=== PATIENT | male | born 1965 | race Caucasian/White ===

== ENCOUNTER 2018-01-29 12:54 | Inpatient (IN) | payer OTHER ==
[2018-01-29] MEDS ORDERED: IPRATROPIUM/ALBUTEROL 3 ML DEYVIAL IH PRN (15:19)
[2018-01-29] MEDS ORDERED: ALBUTEROL 3 ML DEYVIAL IH PRN (15:19)
[2018-01-29] MEDS ORDERED: BISACODYL 10 MG SUPP PR PRN (15:19)
[2018-01-29] MEDS ORDERED: ONDANSETRON 4 MG/2 ML VIAL IV PRN (15:19)
[2018-01-29] MEDS ORDERED: MAGNESIUM HYDROXIDE 30 ML UDCUP PO PRN (15:19)
[2018-01-29] MEDS ORDERED: ACETAMINOPHEN 325 MG TAB PO PRN (15:19)
[2018-01-29] MEDS ORDERED: VANCOMYCIN IV SCH (15:30)
[2018-01-29] MEDS ORDERED: METOCLOPRAMIDE 5 MG TAB PO PRN (15:30)
[2018-01-29] MEDS ORDERED: SOD CHLORIDE IV SCH (15:30)
[2018-01-29] MEDS ORDERED: [UNRECOGNIZED DRUG - OTHER] IV SCH (15:30)
[2018-01-29] MEDS: LACTULOSE 20 GM/30 ML UDCUP PO SCH (16:27)
[2018-01-29] MEDS: metroNIDAZOLE 500 MG TAB PO SCH ×2 (17:42→21:50)
[2018-01-29] MEDS: CARBOXYMETHYLCELLULOSE 1% 0.4 ML DROPERETTE EACHEYE SCH ×2 (17:43→20:21)
[2018-01-29] MEDS: VANCOMYCIN 2 GM in D5W 500 ML IV SCH (17:43)
--- NOTE | 2018-01-29 18:40 | GHP ---
POST ADMISSION PHYSICIAN EVALUATION AND REHABILITATION TREATMENT PLAN DATE OF ADMISSION: 01/29/2018 DATE OF EVALUATION: 01/29/2018 TIME OF EVALUATION: 1525 REFERRING FACILITY: [facility]. REFERRING PHYSICIAN: Bill Johnson MD IMPAIRMENT GROUP: 2.1 DATE OF ONSET: 01/04/2018 CONSULTING PHYSICIAN: He was seen by the hospitalist service, Dr. Nova; by the infectious disease service, Dr. Rosenberg; and by ENT, Dr. Rossi. 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 ETIOLOGIC DIAGNOSIS: Nontraumatic brain dysfunction. DATE OF SURGERY: 01/04/2018, with a 2nd surgery on 01/14/2018. HISTORY OF PRESENT ILLNESS: This patient is a 52-year-old man who was admitted to [facility] on 01/04/2018, for elective resection of an acoustic schwannoma. He had experienced visual and hearing loss. He was originally assessed at [facility] on 12/17/2017, where the schwannoma was diagnosed by MRI. He had presented with papilledema, suggesting increased intracranial pressure. He had complained of dimming of his vision that began 2 months prior. He also had numbness in the left side of his face that had progressed over 2 months, and he was feeling dizzy and wobbly. He underwent translabyrinthine craniotomy and excision of the vestibular schwannoma. Initially, he had a subtotal resection and placement of an intraventricular drain. Subsequently, he had stage 2 of the surgery on 2017. During his hospital stay, he had hypoxic respiratory failure. He had prolonged intubation. He was placed on a course of corticosteroids with a 10- day taper starting 01/17/2018. He had volume overload and required diuresis. He had uncontrolled hypertension, initially requiring IV blood pressure medications, but subsequently transitioned to orals. He had [id number] left facial paralysis after surgery. He had a fall during his hospital stay on 01/22/2018, and had nonoperative facial fractures. He reports he broke his nose. He was seen by ENT, Dr. Rossi, regarding this. He was evaluated after the fall with a lumbar puncture which was consistent with a bacterial meningitis. He was placed on IV antibiotics under the care of Dr. Rosenberg of Infectious Disease. He had melena, and an EGD was done on 01/24/2018, which showed a nonbleeding duodenal ulcer. STUDIES AND LABS: Most recent brain MRI showed persistent hydrocephalus, evolution of perioperative ischemic changes within the left middle cerebral peduncle, and unchanged postoperative findings in the left cerebellopontine angle cistern. There was no residual or recurrent enhancing tumor noted. He had a basic metabolic profile done on 01/29/2018, the day of hospital discharge , which showed a low potassium at 3.1, a low calcium at 7.4, an elevated glucose at 132, but otherwise renal function and electrolytes were within normal limits. CBC done on 01/24/2018, showed an elevated white blood cell count at 14.67. He had anemia with a hemoglobin of 7.9 and a hematocrit of 23.8. He had a low platelet count at 130. When he initially presented at [facility], other labs that were done included a normal TSH, a normal basic metabolic profile, but for a slightly elevated glucose at 100, and findings of the left intracranial mass. PRECAUTIONS: He is a fall risk. He has aspiration and seizure precautions. ACTIVE COMORBIDITIES: He has the tier 2 comorbidity of dysphagia. Otherwise, he has no active tier 1, tier 2, or tier 3 comorbidities. PAST MEDICAL HISTORY: Obesity. PAST SURGICAL HISTORY: He has not had prior surgeries. PREHOSPITAL MEDICATIONS: He was taking a multivitamin and vitamin C. ALLERGIES: There are no known drug allergies. He is intolerant to onions. ADMISSION MEDICATIONS: 1. Acetaminophen 650 mg p.o. q.6 hours p.r.n. 2. Albuterol 3 mg p.o. q.4 hours p.r.n. 3. DuoNeb 3 mL inhaled q.4 hours p.r.n. 4. Amlodipine 10 mg p.o. daily. 5. Bisacodyl 10 mg GA daily p.r.n. 6. Carboxymethylcellulose eyedrops to each eye p.r.n. and 2 drops each eye t.i.d. scheduled. 7. Cefepime 2 g IV q.8 hours. 8. Lactulose 20 g p.o. q.12 hours. 9. Magnesium hydroxide (milk of magnesia), 30 mL p.o. q.12 hours p.r.n. 10. Metoclopramide 5 mg p.o. q.6 hours p.r.n. nausea. 11. Metronidazole 500 mg p.o. q.8 hours. 12. Ondansetron 4 mg IV q.6 hours p.r.n. 13. Pantoprazole 40 mg p.o. b.i.d. 14. Senna/docusate 1 tab p.o. b.i.d. scheduled. 15. Vancomycin 2 g IV q.12 hours. Also ordered but not continued on admission to inpatient rehab were as follows: 1. Hydralazine 10 mg IV q.8 hours p.r.n. 2. Diphenhydramine 12.5 mg p.o. q.6 hours. 3. Labetalol 10 mg IV q.2 hours p.r.n. PSYCHOSOCIAL HISTORY: He is a nonsmoker and nondrinker. He lives with his mother and brother. There is 1 step to enter the house. 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 FAMILY HISTORY: Noncontributory. REVIEW OF SYSTEMS: He reports low vision. He says he can see outlines of things and he can perceive movement. He reports loss of hearing in the left ear. He reports difficulty swallowing and coughing after he eats, especially if he eats too quickly. He is aware of a left facial droop. Otherwise neurologically, he denies weakness, numbness, or tingling of the extremities. He has no headache. He is not in pain otherwise. He denies fevers or chills. He denies cough or dyspnea. He denies nausea, vomiting, constipation, or diarrhea. He denies joint pain or joint swelling. He is aware of swelling bilateral in his upper extremities and reports he had an ultrasound of both arms to rule out DVT and it was negative. He reports that he snores if he sleeps on his back and needs oxygen. If he sleeps on his left or right side, he does not snore and reports that he does not need oxygen. Otherwise, a 10- point review of systems is negative. PHYSICAL EXAM: VITAL SIGNS: Blood pressure is 154/89, heart rate is 93, respiratory rate is 20, oxygen saturation is 93% on room air, temperature is 36.8 degrees centigrade. His weight is 152.8 kg for a body mass index of 43.3. GENERAL: This is a very obese man lying in bed, dressed in street clothes, cooperative, and in no acute distress. HEENT: Extraocular movements are intact. Pupils are equal, round, and reactive to light. He is unable to completely close his left eye. Mucous membranes are moist. Dentition is in good condition. He has a crowded airway, Mallampati class 3. NECK: Supple. HEART: There is a regular rate and rhythm with no murmurs, rubs, or gallops. LUNGS: Clear to auscultation bilaterally. ABDOMEN: Soft, nontender, nondistended with normoactive bowel sounds and no hepatosplenomegaly. EXTREMITIES: There is no cyanosis or clubbing. He has mild swelling bilaterally to the upper extremities. There is no edema in the lower extremities. NEUROLOGIC: He is alert and oriented x3. He is unable to close his left eye and he has a left facial droop, but otherwise cranial nerves 2-12 are grossly intact. There is no focal weakness. Sensation is intact to light touch. Deep tendon reflexes are 2+ bilaterally at the biceps, patellar, and Achilles tendons. Hearing loss is absent bilaterally to finger rub. SKIN: He has a half-circular incision behind his left ear. It is partially healed, and it has sutures present proximally and distally. There is mild erythema. There is no tenderness and no purulence. There is a stapled incision approximately 2 cm on his right frontoparietal area, and there is another small incision with eschar and a single suture on his scalp. CURRENT LEVEL OF FUNCTION: Per the pre-admission screen, regarding diet, feeding, and swallowing, he was on a regular diet. He required minimal assist with voice cues and setup due to his low vision. Grooming was done with minimal assist while seated. Dressing required minimal assist. Toileting required maximal assist for bailey care, and minimal assist for toilet transfer. He required voice cues for bed mobility. He was able to transfer with minimal assist and voice cues using a front-wheeled walker. Balance required contact guard to minimal assist. Endurance was fair. He was able to ambulate 15 feet with a front-wheeled walker and minimal assist of 2 people. Communication and cognition were considered normal. There are no significant functional changes from the preadmission screen on today's exam. IMPRESSION: This patient is a very obese 52-year-old man who had neurologic symptoms for 2 months or more leading up to an emergency department visit on . He had progressive vision loss, hearing loss, and impaired balance. Evaluation at the emergency department included a brain MRI which revealed a large left vestibular schwannoma. He was initially treated with corticosteroids. He was admitted to [facility] on 2017. He had a two-stage resection with surgery on 01/04/2018 and 01/14/2018. In the interim between the surgeries, he had respiratory failure requiring prolonged intubation. During his hospital stay, he had other complications including bacterial meningitis being treated with IV antibiotics and a fall with nonsurgical facial fractures. He has had edema of the upper extremities, but DVT was ruled out by ultrasounds. He had anemia and melena. He had an EGD which showed a nonbleeding duodenal ulcer for which he has been placed on a proton pump inhibitor. He was eventually medically stabilized and is appropriate for inpatient rehabilitation. His goal is to complete a rehabilitation stay and discharge home with his family. For a safe discharge, he will need to be independent with eating, grooming, and bed mobility, and to have modified independence for transfers, toileting, dressing, and ambulation with the least restrictive device on level and unlevel surfaces and for community distances. He will have therapy with Physical Therapy and Occupational Therapy. I have added Speech and Language Pathology due to his report of difficulty swallowing and coughing after eating. He will have therapy with each discipline for 60 minutes per day on 5-7 days of the week. His expected duration of stay is 7-10 days. It is anticipated that upon discharge he will continue to benefit from outpatient therapy, including occupational therapy and physical therapy. PLAN: 1. Debility status post craniotomy and excision of left vestibular schwannoma. PT and OT to optimize mobility and ADLs toward the independent or modified independent level. 2. Dysphagia and left facial weakness. Assessment and treatment per Speech and Language Pathology. 3. Inability to close left eye. Eye will be taped shut at night. I will add an ophthalmic ointment at night and otherwise the Celluvisc ophthalmic drops will be continued as ordered. 4. Hypertension, which required IV blood pressure medications initially. Continue amlodipine. Monitor blood pressure and adjust as needed. 5. Meningitis. Continue cefepime 2 g q.8 hours IV, vancomycin 2 g q.12 hours IV, and metronidazole 500 mg p.o. q.8 hours for 14 days, through 02/07/2018. Monitoring with CBC, CMP, ESR, and CRP, and vancomycin trough every Sunday and BMP and vancomycin trough every . Labs are to be faxed to Dr. Crispin Rosenberg of [facility] at [phone]. 6. Low vision. Discussed possible etiologies with neurosurgeon, Dr. Johnson. He thinks it is likely due to prolonged papilledema related to increased intracranial pressure. He had initial improvement when an intraventricular drain was placed. 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 7. Anemia. Will repeat CBC as planned for , 01/31/2018. Will also check iron panel. 8. Hypokalemia noted on labs today. We will repeat a BMP tomorrow 01/30/2018, and will replace potassium if necessary. 9. Duodenal ulcer. Continue proton pump inhibitor likely for 6 weeks, which would be into mid February. 10. Wound care. He should wash his hair daily with regular shampoo, but not scrub harshly over incisions. He can pat dry with a towel. He is not to put anything on his incisions. Per Dr. Johnson, there is fluid under the wound behind his left ear. There is also a fat graft in his mastoid. He expects this fluid collection to either resolve or declare itself as a CSF leak. It will be monitored carefully. Sutures and julien can be removed in 1 more week , which would be 02/04/2018. 11. Followup. He will see Dr. Johnson of [facility] after his discharge, and Dr. Johnson or his physician bacteriology research assistant, Soraida, will try to schedule a visit while he is on inpatient rehabilitation. He will follow up with infectious disease physician, Dr. Crispin Rosenberg, after his discharge. He might benefit from a Neuro-Ophthalmology evaluation. /[id number]/MODL MTDD
[2018-01-29] MEDS: PETROLAT,WHT/MIN OIL/SOD CHL 3.5 GM OPHT.OINT LEFTEYE SCH (20:20)
[2018-01-29] MEDS: SENNOSIDES/DOCUSATE SODIUM TAB PO SCH (20:20)
[2018-01-29] MEDS: PANTOPRAZOLE SODIUM 40 MG TAB PO SCH (20:21)
[2018-01-29] MEDS: CEFEPIME HCL 2 GM in NS 100 ML IV SCH (21:51)
[2018-01-29] MEDS ORDERED: CEFEPIME IV SCH (22:00)
[2018-01-29] MEDS ORDERED: DEXTROSE IV SCH (22:00)
[2018-01-30] MEDS: LACTULOSE 20 GM/30 ML UDCUP PO SCH (04:09)
[2018-01-30] MEDS: CEFEPIME HCL 2 GM in NS 100 ML IV SCH ×3 (05:00→21:21)
[2018-01-30] MEDS: VANCOMYCIN 2 GM in D5W 500 ML IV SCH ×2 (05:41→18:01)
[2018-01-30] MEDS: SENNOSIDES/DOCUSATE SODIUM TAB PO SCH ×2 (07:45→21:31)
[2018-01-30] MEDS: metroNIDAZOLE 500 MG TAB PO SCH ×3 (07:51→22:45)
[2018-01-30] MEDS: PANTOPRAZOLE SODIUM 40 MG TAB PO SCH ×2 (07:51→21:20)
[2018-01-30] MEDS: CARBOXYMETHYLCELLULOSE 1% 0.4 ML DROPERETTE EACHEYE SCH ×3 (07:51→21:20)
[2018-01-30] MEDS ORDERED: LACTULOSE 20 GM/30 ML UDCUP PO PRN (08:50)
--- NOTE | 2018-01-30 13:28 | PDOREHIP ---
Admission [facility] - Admission - 3 Day Assessment Period Admission Date/Day 1: 01/29/18 Day 2: 01/30/18 Day 3: 01/31/18 - Active Diagnoses Comorbidities and Co-existing Conditions at Admission: 83649. None of the Above - Skin Conditions Unhealed Pressure Ulcer (1 or more/Stage 1 or >)-Admission: 0. No
--- NOTE | 2018-01-30 13:28 | SOAPPROG ---
SOAP Progress Note Assessment/Plan: Assessment: Debility status post craniotomy and excision of left vestibular schwannoma. PT and OT to optimize mobility and ADLs toward the independent or modified independent level. Dysphagia and left facial weakness. Assessment and treatment per Speech and Language Pathology. Inability to close left eye. Eye will be taped shut at night. Continue ophthalmic ointment at night and Celluvisc ophthalmic drops during the day. Hypertension, which required IV blood pressure medications initially. Continue amlodipine. Monitor blood pressure and adjust as needed. Meningitis. Continue cefepime 2 g q.8 hours IV, vancomycin 2 g q.12 hours IV, and metronidazole 500 mg p.o. q.8 hours for 14 days, through 02/07/2018. * CBC, CMP, ESR, and CRP, and vancomycin trough every Sunday * BMP and vancomycin trough every . * Labs are to be faxed to Dr. Crispin Rosenberg of [facility] at [phone]. Low vision. Discussed possible etiologies with neurosurgeon, Dr. Johnson, 2017. He thinks it is likely due to prolonged papilledema related to increased intracranial pressure. He had initial improvement when an intraventricular drain was placed. 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 Anemia, thrombocytopenia. * Hemoglobin and hematocrit 97.9/23.8 on 01/24/2018. Platelets were 130. * Will repeat CBC as planned for , 01/31/2018. Will also check iron panel. Hypokalemia noted on labs 01/29/2018 with potassium of 3.1. Minimal improvement to 3.2 on BMP 01/30/2018. Initiate potassium replacement 20 mEq q.day. Will recheck Q and Sunday with monitoring regarding antibiotics. Normal magnesium on labs today, 01/30/2018. Insomnia. Shortness of breath while lying flat overnight. Nurse to arrange more comfortable mattress. Will also help protect skin, with blanching erythema noted over sacrum. Very minimal elevation of BNP; doubt that CHF is present and contributing to shortness of breath while lying flat. Duodenal ulcer. Continue proton pump inhibitor likely for 6 weeks, which would be into mid February. Wound care. He should wash his hair daily with regular shampoo, but not scrub harshly over incisions. He can pat dry with a towel. He is not to put anything on his incisions. Per Dr. Johnson, there is fluid under the wound behind his left ear. There is also a fat graft in his mastoid. He expects this fluid collection to either resolve or declare itself as a CSF leak. It will be monitored carefully. Sutures and julien can be removed in 1 more week , which would be 02/04/2018. FOLLOW-UP. He will see Dr. Johnson of [facility] after his discharge, and Dr. Johnson or his physician assistant finance director, Soraida, will try to schedule a visit while he is on inpatient rehabilitation. He will follow up with infectious disease physician, Dr. Crispin Rosenberg, after his discharge. He might benefit from a Neuro-Ophthalmology evaluation. 01/30/18 17:49 Subjective: Reports that uncomfortable mattress interfered with sleep. He slept on his back and became short of breath. Subsequently oxygen was placed. He has not noted any improvement in his eyesight. Otherwise without complaints. No cough or dyspnea, no fevers or chills. Objective: Vital Signs Temp Pulse Resp BP Pulse Ox 36.5 C 87 16 139/79 H 93 01/30/18 06:40 01/30/18 06:40 01/30/18 06:40 01/30/18 07:51 01/30/18 06:40 Laboratory Results 01/30/18 06:03 01/29/18 01/30/18 01/31/18 05:59 05:59 05:59 Intake Total 2287 1180 Output Total 300 Balance 1987 1180 Physical Exam - Physical Exam General Appearance: WD/WN, alert, no apparent distress, obese EENT: PERRL/EOMI, other (Unable to fully close left eye) Respiratory: normal breath sounds, No crackles, No rhonchi, No wheezing Cardiac/Chest: regular rate, rhythm, edema (1+ bilateral pretibial), No systolic murmur Skin: normal color, warm/dry Neuro/Psych: alert, normal mood/affect, oriented x 3, facial droop (left) ICD10 Worksheet Patient Problems: Problems Problem Status Onset History of benign schwannoma Acute Meningitis after procedure Acute S/P craniotomy Acute
[2018-01-30] MEDS: POTASSIUM CL 20 MEQ TAB PO SCH (14:19)
[2018-01-30] MEDS: PETROLAT,WHT/MIN OIL/SOD CHL 3.5 GM OPHT.OINT LEFTEYE SCH (21:21)
[2018-01-31] MEDS: CEFEPIME HCL 2 GM in NS 100 ML IV SCH ×3 (05:02→22:04)
[2018-01-31] MEDS: VANCOMYCIN 2 GM in D5W 500 ML IV SCH (05:58)
[2018-01-31 08:11] LABS: PLATELET COUNT 183 10^3/uL (150-400)
[2018-01-31] MEDS: SENNOSIDES/DOCUSATE SODIUM TAB PO SCH ×2 (09:01→20:07)
[2018-01-31] MEDS: metroNIDAZOLE 500 MG TAB PO SCH ×3 (09:01→22:12)
[2018-01-31] MEDS: POTASSIUM CL 20 MEQ TAB PO SCH (09:01)
[2018-01-31] MEDS: CARBOXYMETHYLCELLULOSE 1% 0.4 ML DROPERETTE EACHEYE SCH ×3 (09:12→20:07)
[2018-01-31] MEDS: PANTOPRAZOLE SODIUM 40 MG TAB PO SCH ×2 (09:12→20:07)
--- NOTE | 2018-01-31 13:07 | SOAPPROG ---
SOAP Progress Note Assessment/Plan: Assessment: Debility status post craniotomy and excision of left vestibular schwannoma. PT and OT to optimize mobility and ADLs toward the independent or modified independent level. Dysphagia and left facial weakness. Assessment and treatment per Speech and Language Pathology. Inability to close left eye. Eye will be taped shut at night. Continue ophthalmic ointment at night and Celluvisc ophthalmic drops during the day. Edema, upper and lower extremities. Upper extremity DVTs ruled out with ultrasound in the hospital. * Not in heart failure with minimal elevation of BNP. * Likely had fluid overload in the hospital. * Amlodipine may contribute. Will discontinue and change to lisinopril. * Weight q.week. Hypertension, which required IV blood pressure medications initially. * Discontinue amlodipine and initiate lisinopril 20 mg q.day starting 02/01/2018 Meningitis. Continue cefepime 2 g q.8 hours IV, vancomycin 2 g q.12 hours IV, and metronidazole 500 mg p.o. q.8 hours for 14 days, through 02/07/2018. * CBC, CMP, ESR, and CRP, and vancomycin trough every Sunday * BMP and vancomycin trough every . * Labs are to be faxed to Dr. Crispin Rosenberg of [facility] at [phone]. Low vision. Discussed possible etiologies with neurosurgeon, Dr. Johnson, 2017. He thinks it is likely due to prolonged papilledema related to increased intracranial pressure. He had initial improvement when an intraventricular drain was placed. 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 Anemia, thrombocytopenia. * Hemoglobin and hematocrit 97.9/23.8 on 01/24/2018. Platelets were 130. * Thrombocytopenia resolved on labs 01/31/2018. Hemoglobin and hematocrit declined to 8.8 and 27.1. Not iron deficient. Continue to monitor. Hypokalemia noted on labs 01/29/2018 with potassium of 3.1. Minimal improvement to 3.2 on BMP 01/30/2018. * Resolved on labs 01/31/2018. Will discontinue potassium supplement as lisinopril will tend to raise the potassium. Insomnia. Shortness of breath while lying flat overnight. Nurse to arrange more comfortable mattress. Will also help protect skin, with blanching erythema noted over sacrum. Very minimal elevation of BNP; doubt that CHF is present and contributing to shortness of breath while lying flat. Duodenal ulcer. Continue proton pump inhibitor likely for 6 weeks, which would be into mid February. Wound care. He should wash his hair daily with regular shampoo, but not scrub harshly over incisions. He can pat dry with a towel. He is not to put anything on his incisions. Per Dr. Johnson, there is fluid under the wound behind his left ear. There is also a fat graft in his mastoid. He expects this fluid collection to either resolve or declare itself as a CSF leak. It will be monitored carefully. Sutures and julien can be removed in 1 more week , which would be 02/04/2018. FOLLOW-UP. He will see Dr. Johnson of [facility] after his discharge, and Dr. Johnson or his physician certified medical technician assistant, Soraida, will try to schedule a visit while he is on inpatient rehabilitation. He will follow up with infectious disease physician, Dr. Crispin Rosenberg, after his discharge. He might benefit from a Neuro-Ophthalmology evaluation. 01/31/18 13:26 Subjective: No complaints. Not in pain. No fevers or chills, no cough or dyspnea. Aware that he requires oxygen overnight. Concerned about swelling. He says that his left arm was more swollen yesterday but that swelling went down overnight when it was positioned raised on a pillow for sleep. Objective: Vital Signs Temp Pulse Resp BP Pulse Ox 36.7 C 105 H 18 132/89 H 95 01/31/18 08:00 01/31/18 08:00 01/31/18 08:00 01/31/18 08:00 01/31/18 08:00 Laboratory Results 01/31/18 05:30 01/30/18 01/31/18 02/01/18 05:59 05:59 05:59 Intake Total 2287 3980 1660 Output Total 300 1600 800 Balance 1987 2380 860 Physical Exam - Physical Exam General Appearance: WD/WN, alert, no apparent distress, obese Respiratory: normal breath sounds, No crackles, No rhonchi, No wheezing Cardiac/Chest: regular rate, rhythm, edema (2+ bilateral upper extremities and pretibial lower extremities), No diastolic murmur, No systolic murmur Skin: normal color, warm/dry, other (Incisions intact, sutures and julien present, no erythema, swelling or discharge. Soft and nontender along incision behind left ear.) Neuro/Psych: alert, normal mood/affect, oriented x 3 ICD10 Worksheet Patient Problems: Problems Problem Status Onset History of benign schwannoma Acute Meningitis after procedure Acute S/P craniotomy Acute - ICD10 Problem Qualifiers (1) Meningitis after procedure (2) S/P craniotomy (3) History of benign schwannoma
[2018-01-31] MEDS: VANCOMYCIN 1.5 GM in NS 250 ML IV SCH (17:58)
[2018-01-31] MEDS: PETROLAT,WHT/MIN OIL/SOD CHL 3.5 GM OPHT.OINT LEFTEYE SCH (20:07)
[2018-02-01] MEDS: CARBOXYMETHYLCELLULOSE 1% 0.4 ML DROPERETTE EACHEYE PRN (01:06)
[2018-02-01] MEDS: VANCOMYCIN 1.5 GM in NS 250 ML IV SCH ×3 (01:29→21:10)
[2018-02-01] MEDS: CEFEPIME HCL 2 GM in NS 100 ML IV SCH ×3 (05:22→22:20)
[2018-02-01] MEDS: SENNOSIDES/DOCUSATE SODIUM TAB PO SCH ×2 (08:57→20:43)
[2018-02-01] MEDS: PANTOPRAZOLE SODIUM 40 MG TAB PO SCH ×2 (08:57→20:43)
[2018-02-01] MEDS: LISINOPRIL 20 MG TAB PO SCH (08:57)
[2018-02-01] MEDS: CARBOXYMETHYLCELLULOSE 1% 0.4 ML DROPERETTE EACHEYE SCH ×3 (08:58→20:45)
[2018-02-01] MEDS: metroNIDAZOLE 500 MG TAB PO SCH ×3 (08:58→22:28)
--- NOTE | 2018-02-01 09:55 | SOAPPROG ---
SOAP Progress Note Assessment/Plan: Assessment: Debility status post craniotomy and excision of left vestibular schwannoma. * Initial functional independence measure 83 on 02/01/2018. Has ambulated 150 ft slowly with a front wheel walker needing standby assist. Has ascended and descended 3 steps with 2 railings. Lower body and upper body dressing required setup and minimal assist. Bathing was done seated with moderate assist. Needs guidance for low vision when he is walking. Vision in the right eye is improving vision in the left eye shows severe impairment. * Continue PT and OT to optimize mobility and ADLs toward the independent or modified independent level. Dysphagia and left facial weakness. Assessment and treatment per Speech and Language Pathology. Inability to close left eye. Eye will be taped shut at night. Continue ophthalmic ointment at night and Celluvisc ophthalmic drops during the day. Hypertension, which required IV blood pressure medications initially. * Changed from amlodipine 10 mg q.day to lisinopril 20 mg q.day starting 2017 to reduce edema. Monitor for adequacy of control. Consider titrating lisinopril verses adding a smaller dose of amlodipine if blood pressure is high. Meningitis. Continue cefepime 2 g q.8 hours IV, vancomycin 2 g q.12 hours IV, and metronidazole 500 mg p.o. q.8 hours for 14 days, through 02/07/2018. * CBC, CMP, ESR, and CRP, and vancomycin trough every Sunday * BMP and vancomycin trough every . * Labs are to be faxed to Dr. Crispin Rosenberg of [facility] at [phone]. * [facility] pharmacy adjusting warfarin. Dry mouth. Biotene has been ordered four times daily p.r.n. And he was encouraged to use it. Trial of pilocarpine 5 mg at HS to improve symptoms overnight. Low vision. Discussed possible etiologies with neurosurgeon, Dr. Johnson, 2017. He thinks it is likely due to prolonged papilledema related to increased intracranial pressure. He had initial improvement when an intraventricular drain was placed. 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 Anemia, thrombocytopenia. * Hemoglobin and hematocrit 7.9/23.8 on 01/24/2018. Platelets were 130. * Improving on labs, 01/31/2018. Not iron deficient. Thrombocytopenia resolved. Hypokalemia noted on labs 01/29/2018 with potassium of 3.1. Minimal improvement to 3.2 on BMP 01/30/2018. Normal magnesium on labs 01/30/2018. Initiate potassium replacement 20 mEq q.day. * Resolved on labs 01/31/2018. Will recheck Q and Sunday with monitoring regarding antibiotics. Insomnia. Improved with change of mattress. Duodenal ulcer. Continue proton pump inhibitor likely for 6 weeks, which would be into mid February. Wound care. He should wash his hair daily with regular shampoo, but not scrub harshly over incisions. He can pat dry with a towel. He is not to put anything on his incisions. Per Dr. Johnson, there is fluid under the wound behind his left ear. There is also a fat graft in his mastoid. He expects this fluid collection to either resolve or declare itself as a CSF leak. It will be monitored carefully. Sutures and julien can be removed in 1 more week , which would be 02/04/2018. Prophylaxis. Ambulating 150 ft. No hemiparesis. Main risk factor is obesity. No pharmacologic anticoagulation is indicated. Encourage increased ambulation. DISPOSITION: Plans to return home, where he is main caregiver for his mother as well as his brother was on disability. 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 Tentative discharge date set for 02/08/2018. FOLLOW-UP. He will see Dr. Johnson of [facility] after his discharge, and Dr. Johnson or his physician supply chain assistant, Soraida, will try to schedule a visit while he is on inpatient rehabilitation. He will follow up with infectious disease physician, Dr. Crispin Rosenberg, after his discharge. He will benefit from a Neuro-Ophthalmology evaluation. 02/01/18 12:02 Subjective: Complains of dry mouth, especially at night. He drinks extra fluid because of it and then he has urinary frequency at night. Otherwise without complaints. No cough or dyspnea, no fevers or chills. Not in pain. Objective: Vital Signs Temp Pulse Resp BP Pulse Ox 36.5 C 106 H 18 152/110 H 93 02/01/18 06:35 02/01/18 06:35 02/01/18 06:35 02/01/18 08:57 02/01/18 06:35 Laboratory Results 01/31/18 05:30 01/31/18 05:30 01/31/18 02/01/18 02/02/18 05:59 05:59 05:59 Intake Total 3980 4323 460 Output Total 1600 1200 300 Balance 2380 3123 160 - Time Spent With Patient Time Spent With Patient: Greater than 35 min floor time today, including more than 50% of time in coordination of care during staffing meeting, and counseling patient. Physical Exam - Physical Exam General Appearance: WD/WN, alert, no apparent distress, obese Respiratory: No respiratory distress, No accessory muscle use Cardiac/Chest: edema (1+ bilateral pretibial) Skin: normal color, warm/dry, other (Incisios clean dry and intact, no erythema. ) Neuro/Psych: alert, normal mood/affect, oriented x 3, facial droop (Left) ICD10 Worksheet Patient Problems: Problems Problem Status Onset History of benign schwannoma Acute Meningitis after procedure Acute S/P craniotomy Acute
[2018-02-01] MEDS: PILOCARPINE HCL 5 MG TAB PO SCH (20:43)
[2018-02-01] MEDS: PETROLAT,WHT/MIN OIL/SOD CHL 3.5 GM OPHT.OINT LEFTEYE SCH (20:43)
[2018-02-02] MEDS: VANCOMYCIN 1.5 GM in NS 250 ML IV SCH ×3 (03:36→18:56)
[2018-02-02] MEDS: CEFEPIME HCL 2 GM in NS 100 ML IV SCH ×3 (05:19→22:05)
[2018-02-02] MEDS: metroNIDAZOLE 500 MG TAB PO SCH ×3 (06:46→23:38)
[2018-02-02] MEDS: BIOTENE DRY MOUTH ORAL RINSE 237 ML BTL MM PRN ×3 (06:48→20:14)
[2018-02-02] MEDS: LISINOPRIL 20 MG TAB PO SCH (08:56)
[2018-02-02] MEDS: CARBOXYMETHYLCELLULOSE 1% 0.4 ML DROPERETTE EACHEYE SCH ×3 (08:56→22:12)
[2018-02-02] MEDS: SENNOSIDES/DOCUSATE SODIUM TAB PO SCH ×2 (08:56→20:04)
[2018-02-02] MEDS: PANTOPRAZOLE SODIUM 40 MG TAB PO SCH ×2 (08:56→20:04)
--- NOTE | 2018-02-02 14:35 | SOAPPROG ---
SOAP Progress Note Assessment/Plan: Assessment/Plan: Debility status post craniotomy and excision of left vestibular schwannoma. * Initial functional independence measure 83 on 02/01/2018. Has ambulated 150 ft slowly with a front wheel walker needing standby assist. Has ascended and descended 3 steps with 2 railings. Lower body and upper body dressing required setup and minimal assist. Bathing was done seated with moderate assist. Needs guidance for low vision when he is walking. Vision in the right eye is improving vision in the left eye shows severe impairment. * Continue PT and OT to optimize mobility and ADLs toward the independent or modified independent level. Dysphagia and left facial weakness. Assessment and treatment per Speech and Language Pathology. Inability to close left eye. Eye will be taped shut at night. Continue ophthalmic ointment at night and Celluvisc ophthalmic drops during the day. Hypertension, which required IV blood pressure medications initially. * Changed from amlodipine 10 mg q.day to lisinopril 20 mg q.day starting 2017 to reduce edema. Monitor for adequacy of control. Consider titrating lisinopril verses adding a smaller dose of amlodipine if blood pressure is high. Meningitis. Continue cefepime 2 g q.8 hours IV, vancomycin 2 g q.12 hours IV, and metronidazole 500 mg p.o. q.8 hours for 14 days, through 02/07/2018. * CBC, CMP, ESR, and CRP, and vancomycin trough every Sunday * BMP and vancomycin trough every . * Labs are to be faxed to Dr. Crispin Rosenberg of [facility] at [phone]. * [facility] pharmacy adjusting warfarin. 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 * Biotene has been ordered four times daily p.r.n. And he was encouraged to use it. * Trial of pilocarpine 5 mg at HS to improve symptoms overnight. Low vision. Discussed possible etiologies with neurosurgeon, Dr. Johnson, 2017. He thinks it is likely due to prolonged papilledema related to increased intracranial pressure. He had initial improvement when an intraventricular drain was placed. 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 Anemia, thrombocytopenia. * Hemoglobin and hematocrit 7.9/23.8 on 01/24/2018. Platelets were 130. * Improving on labs, 01/31/2018. Not iron deficient. Thrombocytopenia resolved. Hypokalemia noted on labs 01/29/2018 with potassium of 3.1. Minimal improvement to 3.2 on BMP 01/30/2018. Normal magnesium on labs 01/30/2018. Initiate potassium replacement 20 mEq q.day. * Resolved on labs 01/31/2018. Will recheck Q and Sunday with monitoring regarding antibiotics. Insomnia. Improved with change of mattress. Duodenal ulcer. Continue proton pump inhibitor likely for 6 weeks, which would be into mid February. Wound care. He should wash his hair daily with regular shampoo, but not scrub harshly over incisions. He can pat dry with a towel. He is not to put anything on his incisions. Per Dr. Johnson, there is fluid under the wound behind his left ear. There is also a fat graft in his mastoid. He expects this fluid collection to either resolve or declare itself as a CSF leak. It will be monitored carefully. Sutures and julien can be removed in 1 more week , which would be 02/04/2018. Prophylaxis. Ambulating 150 ft. No hemiparesis. Main risk factor is obesity. No pharmacologic anticoagulation is indicated. Encourage increased ambulation. DISPOSITION: Plans to return home, where he is main caregiver for his mother as well as his brother who is on disability. 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. Tentative discharge date set for 02/08/2018. FOLLOW-UP. He will see Dr. Johnson of [facility] after his discharge, and Dr. Johnson or his physician records management assistant, Soraida, will try to schedule a visit while he is on inpatient rehabilitation. He will follow up with infectious disease physician, Dr. Crispin Rosenberg, after his discharge. He will benefit from a Neuro-Ophthalmology evaluation. 02/02/18 14:32 Subjective: Doing well - Reporting that everyday seems to be a little better. Having regular bowel movement and no problems with urination. no new neurologic changes. Feels that his eye is doing better since they've started taping. still feeling dry during the day. Objective: Vital Signs Temp Pulse Resp BP Pulse Ox 98.1 F 102 H 18 106/66 93 02/02/18 08:00 02/02/18 08:00 02/02/18 08:00 02/02/18 08:56 02/01/18 20:00 Laboratory Results 01/31/18 05:30 01/31/18 05:30 02/01/18 02/02/18 02/03/18 05:59 05:59 05:59 Intake Total 4323 3550 830 Output Total 1200 1050 Balance 3123 2500 830 Physical Exam - Physical Exam General Appearance: alert, no apparent distress EENT: other (Left sided lagophthalomos, Bruising, Multiple areas of sutures/ julien over scalp) Respiratory: lungs clear Cardiac/Chest: regular rate, rhythm Abdomen: non-tender, soft Skin: normal color Extremities: other (minimal/trace LE edema bilaterally ) Neuro/Psych: alert ICD10 Worksheet Patient Problems: Problems Problem Status Onset History of benign schwannoma Acute Meningitis after procedure Acute S/P craniotomy Acute
[2018-02-02] MEDS: PILOCARPINE HCL 5 MG TAB PO SCH (20:04)
[2018-02-02] MEDS: PETROLAT,WHT/MIN OIL/SOD CHL 3.5 GM OPHT.OINT LEFTEYE SCH (20:11)
[2018-02-03] MEDS: VANCOMYCIN 1.5 GM in NS 250 ML IV SCH ×3 (03:36→19:31)
[2018-02-03] MEDS: CEFEPIME HCL 2 GM in NS 100 ML IV SCH ×3 (05:57→22:04)
[2018-02-03] MEDS: metroNIDAZOLE 500 MG TAB PO SCH ×3 (06:38→23:40)
[2018-02-03] MEDS: CARBOXYMETHYLCELLULOSE 1% 0.4 ML DROPERETTE EACHEYE SCH ×3 (07:41→21:35)
[2018-02-03] MEDS: PANTOPRAZOLE SODIUM 40 MG TAB PO SCH ×2 (07:43→21:35)
[2018-02-03] MEDS: SENNOSIDES/DOCUSATE SODIUM TAB PO SCH ×2 (07:43→21:35)
[2018-02-03] MEDS: LISINOPRIL 20 MG TAB PO SCH (07:43)
--- NOTE | 2018-02-03 11:25 | SOAPPROG ---
SOAP Progress Note Assessment/Plan: Assessment/Plan: Debility status post craniotomy and excision of left vestibular schwannoma. * Initial functional independence measure 83 on 02/01/2018. Has ambulated 150 ft slowly with a front wheel walker needing standby assist. Has ascended and descended 3 steps with 2 railings. Lower body and upper body dressing required setup and minimal assist. Bathing was done seated with moderate assist. Needs guidance for low vision when he is walking. Vision in the right eye is improving vision in the left eye shows severe impairment. * Continue PT and OT to optimize mobility and ADLs toward the independent or modified independent level. Dysphagia and left facial weakness. Assessment and treatment per Speech and Language Pathology. Inability to close left eye. Eye will be taped shut at night. Continue ophthalmic ointment at night and Celluvisc ophthalmic drops during the day. Hypertension, which required IV blood pressure medications initially. * Changed from amlodipine 10 mg q.day to lisinopril 20 mg q.day starting 2017 to reduce edema. Monitor for adequacy of control. Consider titrating lisinopril verses adding a smaller dose of amlodipine if blood pressure is high. Meningitis. Continue cefepime 2 g q.8 hours IV, vancomycin 2 g q.12 hours IV, and metronidazole 500 mg p.o. q.8 hours for 14 days, through 02/07/2018. * CBC, CMP, ESR, and CRP, and vancomycin trough every Sunday * BMP and vancomycin trough every . * Labs are to be faxed to Dr. Crispin Rosenberg of [facility] at [phone]. * [facility] pharmacy adjusting warfarin. 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 * Biotene has been ordered four times daily p.r.n. And he was encouraged to use it. * Trial of pilocarpine 5 mg at HS to improve symptoms overnight. Low vision. Discussed possible etiologies with neurosurgeon, Dr. Johnson, 2017. He thinks it is likely due to prolonged papilledema related to increased intracranial pressure. He had initial improvement when an intraventricular drain was placed. 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 Anemia, thrombocytopenia. * Hemoglobin and hematocrit 7.9/23.8 on 01/24/2018. Platelets were 130. * Improving on labs, 01/31/2018. Not iron deficient. Thrombocytopenia resolved. Hypokalemia noted on labs 01/29/2018 with potassium of 3.1. Minimal improvement to 3.2 on BMP 01/30/2018. Normal magnesium on labs 01/30/2018. Initiate potassium replacement 20 mEq q.day. * Resolved on labs 01/31/2018. Will recheck Q and Sunday with monitoring regarding antibiotics. Insomnia. Improved with change of mattress. Duodenal ulcer. Continue proton pump inhibitor likely for 6 weeks, which would be into mid February. Wound care. He should wash his hair daily with regular shampoo, but not scrub harshly over incisions. He can pat dry with a towel. He is not to put anything on his incisions. Per Dr. Johnson, there is fluid under the wound behind his left ear. There is also a fat graft in his mastoid. He expects this fluid collection to either resolve or declare itself as a CSF leak. It will be monitored carefully. Sutures and julien can be removed in 1 more week , which would be 02/04/2018. Prophylaxis. Ambulating 150 ft. No hemiparesis. Main risk factor is obesity. No pharmacologic anticoagulation is indicated. Encourage increased ambulation. DISPOSITION: Plans to return home, where he is main caregiver for his mother as well as his brother who is on disability. 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 Tentative discharge date set for 02/08/2018. FOLLOW-UP. He will see Dr. Johnson of [facility] after his discharge, and Dr. Johnson or his physician preschool assistant, Soraida, will try to schedule a visit while he is on inpatient rehabilitation. He will follow up with infectious disease physician, Dr. Crispin Rosenberg, after his discharge. He will benefit from a Neuro-Ophthalmology evaluation. Today's Plan - Pt reporting deep/aching pain in the left calf - reports it started a couple of days ago but forgot to share until today. maybe is positionally dependent. no associated SOB. 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 02/03/18 11:21 Subjective: Feeling better each day - can see improvements nearly every day. Does report this morning that he does have a deep ache in his left calf - has been present for the last couple of days but hadn't remembered to tell anyone. no SOB, no CP , no abdominal pain. Having good BM's and continent of bladder Objective: Vital Signs Temp Pulse Resp BP Pulse Ox 98.3 F 103 H 18 110/73 92 02/03/18 10:03 02/03/18 10:03 02/03/18 10:03 02/03/18 10:03 02/03/18 10:03 Laboratory Results 01/31/18 05:30 01/31/18 05:30 02/02/18 02/03/18 02/04/18 05:59 05:59 05:59 Intake Total 3550 2430 480 Output Total 1050 1340 Balance 2500 1090 480 Physical Exam - Physical Exam General Appearance: alert, no apparent distress, other (affect flat) EENT: other (Left Lagophthalmos, ) Respiratory: lungs clear Cardiac/Chest: regular rate, rhythm Abdomen: non-tender, soft Extremities: other (minimal pain with palpation over the left calf - somewhat pinpointed. None over the right. No difference in size (grossly) from side to side and no associated warmth/redness. Trace edema bilaterally ) Neuro/Psych: alert ICD10 Worksheet Patient Problems: Problems Problem Status Onset History of benign schwannoma Acute Meningitis after procedure Acute S/P craniotomy Acute
[2018-02-03] MEDS: ENOXAPARIN 150 MG/ML SYR SC SCH ×2 (17:23→17:34)
[2018-02-03] MEDS: PETROLAT,WHT/MIN OIL/SOD CHL 3.5 GM OPHT.OINT LEFTEYE SCH (19:42)
[2018-02-03] MEDS: PILOCARPINE HCL 5 MG TAB PO SCH (21:35)
[2018-02-04] MEDS: VANCOMYCIN 1.5 GM in NS 250 ML IV SCH ×3 (03:20→18:34)
[2018-02-04] MEDS: CEFEPIME HCL 2 GM in NS 100 ML IV SCH ×3 (06:07→22:20)
[2018-02-04 08:18] LABS: PLATELET COUNT 215 10^3/uL (150-400)
[2018-02-04] MEDS: LISINOPRIL 20 MG TAB PO SCH (08:46)
[2018-02-04] MEDS: SENNOSIDES/DOCUSATE SODIUM TAB PO SCH ×2 (08:46→20:47)
[2018-02-04] MEDS: metroNIDAZOLE 500 MG TAB PO SCH ×3 (08:46→22:28)
[2018-02-04] MEDS: PANTOPRAZOLE SODIUM 40 MG TAB PO SCH ×2 (08:47→20:47)
[2018-02-04] MEDS: CARBOXYMETHYLCELLULOSE 1% 0.4 ML DROPERETTE EACHEYE SCH ×3 (08:48→20:47)
[2018-02-04] MEDS: ENOXAPARIN 150 MG/ML SYR SC SCH (08:48)
--- NOTE | 2018-02-04 12:31 | SOAPPROG ---
SOAP Progress Note Assessment/Plan: Assessment: Debility status post craniotomy and excision of left vestibular schwannoma. * Initial functional independence measure 83 on 02/01/2018. Has ambulated 150 ft slowly with a front wheel walker needing standby assist. Has ascended and descended 3 steps with 2 railings. Lower body and upper body dressing required setup and minimal assist. Bathing was done seated with moderate assist. Needs guidance for low vision when he is walking. Vision in the right eye is improving; vision in the left eye shows severe impairment. * Continue PT and OT to optimize mobility and ADLs toward the independent or modified independent level. Dysphagia and left facial weakness. Showing some improvement. Continue Speech and Language Pathology. Inability to close left eye. Eye will be taped shut at night. Continue ophthalmic ointment at night and Celluvisc ophthalmic drops during the day. Hypertension, which required IV blood pressure medications initially. * Changed from amlodipine 10 mg q.day to lisinopril 20 mg q.day starting 2017 to reduce edema. Monitor for adequacy of control. Consider titrating lisinopril verses adding a smaller dose of amlodipine if blood pressure is high. Meningitis. Continue cefepime 2 g q.8 hours IV, vancomycin 2 g q.12 hours IV, and metronidazole 500 mg p.o. q.8 hours for 14 days, through 02/07/2018. * CBC, CMP, ESR, and CRP, and vancomycin trough every Sunday * BMP and vancomycin trough every . * Labs are to be faxed to Dr. Crispin Rosenberg of [facility] at [phone]. * [facility] pharmacy adjusting warfarin. DVT, left lower extremity. Diagnosed 02/03/2018 and enoxaparin begun. * Discussed with patient's pharmacy. New oral anticoagulants are covered. Changed to rivaroxaban 15 mg twice daily for 21 days through February 24, then 20 mg p.o. Q.day for 3-6 months. Nocturia approximately Q 0.5 hr. Less frequent during the day. * He may be centralizing peripheral edema fluid when he is supine and night Dry mouth. * Continue Biotene. He is found it helpful. * Discontinue pilocarpine at HS, though may have been beneficial, due to nocturia. Edema. Trial of furosemide 20 mg QAM starting 02/05/2018 Low vision. Discussed possible etiologies with neurosurgeon, Dr. Johnson, 2017. He thinks it is likely due to prolonged papilledema related to increased intracranial pressure. He had initial improvement when an intraventricular drain was placed. 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 Anemia, thrombocytopenia. * Hemoglobin and hematocrit 7.9/23.8 on 01/24/2018. Platelets were 130. * Improving on labs, 8.8 and 27.1 on01/31/2018. Not iron deficient. Thrombocytopenia resolved. * Stable on labs 02/04/2018. Hypokalemia noted on labs 01/29/2018 with potassium of 3.1. Minimal improvement to 3.2 on BMP 01/30/2018. Normal magnesium on labs 01/30/2018. Initiate potassium replacement 20 mEq q.day. * Resolved on labs 01/31/2018. Will recheck Q and Sunday with monitoring regarding antibiotics. * Resume KCL with initiation of furosemide on 02/05/2018. Insomnia. Improved with change of mattress. Duodenal ulcer. Continue proton pump inhibitor likely for 6 weeks, which would be into mid February. Wound care. He should wash his hair daily with regular shampoo, but not scrub harshly over incisions. He can pat dry with a towel. He is not to put anything on his incisions. Per Dr. Johnson, there is fluid under the wound behind his left ear. There is also a fat graft in his mastoid. He expects this fluid collection to either resolve or declare itself as a CSF leak. It will be monitored carefully. * Discontinue sutures and julien, 02/04/2018. Prophylaxis. Has left lower extremity DVT. Rivaroxaban as above. On pantoprazole for GI prophylaxis. DISPOSITION: Plans to return home, where he is main caregiver for his mother as well as his brother was on disability. 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 Tentative discharge date set for 02/08/2018. FOLLOW-UP. He will see Dr. Johnson of [facility] after his discharge, and Dr. Johnson or his physician tmd teacher assistant, Soraida, will try to schedule a visit while he is on inpatient rehabilitation. He will follow up with infectious disease physician, Dr. Crispin Rosenberg, after his discharge. He will benefit from a Neuro-Ophthalmology evaluation. 02/04/18 12:31 Subjective: No complaints. Thinks he is better able to close his left eye. Still has swelling but he thinks it is better. Not in pain, no cough or dyspnea, sleeping well. Objective: Vital Signs Temp Pulse Resp BP Pulse Ox 36.6 C 88 16 151/94 H 96 02/04/18 06:28 02/04/18 06:28 02/04/18 06:28 02/04/18 08:46 02/04/18 06:28 Laboratory Results 02/04/18 06:00 02/04/18 06:00 02/03/18 02/04/18 02/05/18 05:59 05:59 05:59 Intake Total 2430 3234 890 Output Total 1340 1600 Balance 1090 1634 890 - Time Spent With Patient Time Spent With Patient: Greater than 35 min floor time today, including record review regarding events of the weekend, coordination of care in discussion with his pharmacy, and counseling patient. Physical Exam - Physical Exam General Appearance: WD/WN, alert, no apparent distress, obese Respiratory: normal breath sounds, No crackles, No rhonchi, No wheezing Cardiac/Chest: regular rate, rhythm, edema (2 to 3+ bilateral upper and lower extremities.) Skin: normal color, warm/dry, other (Incisions with sutures or julien, clean dry and intact.) Neuro/Psych: alert, normal mood/affect, oriented x 3, facial droop (left), other (Left eye closes to approximately 3 mm of lid separation.) ICD10 Worksheet Patient Problems: Problems Problem Status Onset Meningitis after procedure Acute S/P craniotomy Acute History of benign schwannoma Acute
[2018-02-04] MEDS: RIVAROXABAN 15 MG TAB PO SCH (17:14)
[2018-02-04] MEDS: PETROLAT,WHT/MIN OIL/SOD CHL 3.5 GM OPHT.OINT LEFTEYE SCH (20:47)
[2018-02-05] MEDS: BIOTENE DRY MOUTH ORAL RINSE 237 ML BTL MM PRN ×2 (01:24→20:08)
[2018-02-05] MEDS: VANCOMYCIN 1.5 GM in NS 250 ML IV SCH ×3 (02:53→18:59)
[2018-02-05] MEDS: CEFEPIME HCL 2 GM in NS 100 ML IV SCH ×3 (05:27→22:05)
[2018-02-05] MEDS: POTASSIUM CL 20 MEQ PKT PO SCH (08:19)
[2018-02-05] MEDS: FUROSEMIDE 20 MG TAB PO SCH (08:20)
[2018-02-05] MEDS: PANTOPRAZOLE SODIUM 40 MG TAB PO SCH ×2 (08:20→20:07)
[2018-02-05] MEDS: metroNIDAZOLE 500 MG TAB PO SCH ×3 (08:20→22:39)
[2018-02-05] MEDS: RIVAROXABAN 15 MG TAB PO SCH ×2 (08:21→17:36)
[2018-02-05] MEDS: LISINOPRIL 20 MG TAB PO SCH (08:21)
[2018-02-05] MEDS: CARBOXYMETHYLCELLULOSE 1% 0.4 ML DROPERETTE EACHEYE SCH ×3 (08:21→20:07)
[2018-02-05] MEDS: SENNOSIDES/DOCUSATE SODIUM TAB PO SCH ×2 (08:21→20:07)
[2018-02-05] MEDS: CARBOXYMETHYLCELLULOSE 1% 0.4 ML DROPERETTE EACHEYE PRN (11:50)
--- NOTE | 2018-02-05 14:31 | SOAPPROG ---
SOAP Progress Note Assessment/Plan: Assessment: Debility status post craniotomy and excision of left vestibular schwannoma. * Initial functional independence measure 83 on 02/01/2018. Has ambulated 150 ft slowly with a front wheel walker needing standby assist. Has ascended and descended 3 steps with 2 railings. Lower body and upper body dressing required setup and minimal assist. Bathing was done seated with moderate assist. Needs guidance for low vision when he is walking. Vision in the right eye is improving; vision in the left eye shows severe impairment. * Continue PT and OT to optimize mobility and ADLs toward the independent or modified independent level. Dysphagia and left facial weakness. Showing some improvement. Continue Speech and Language Pathology. Inability to close left eye. Eye will be taped shut at night. Continue ophthalmic ointment at night and Celluvisc ophthalmic drops during the day. Hypertension, which required IV blood pressure medications initially. * Changed from amlodipine 10 mg q.day to lisinopril 20 mg q.day starting 2017 to reduce edema. Monitor for adequacy of control. Consider titrating lisinopril verses adding a smaller dose of amlodipine if blood pressure is high. Meningitis. Continue cefepime 2 g q.8 hours IV, vancomycin 2 g q.12 hours IV, and metronidazole 500 mg p.o. q.8 hours for 14 days, through 02/07/2018. * CBC, CMP, ESR, and CRP, and vancomycin trough every Sunday * BMP and vancomycin trough every . * Labs are to be faxed to Dr. Crispin Rosenberg of [facility] at [phone]. * [facility] pharmacy adjusting warfarin. DVT, left lower extremity. Diagnosed 02/03/2018 and enoxaparin begun. * Discussed with patient's pharmacy. New oral anticoagulants are covered. Changed to rivaroxaban 15 mg twice daily for 21 days through February 24, then 20 mg p.o. Q.day for 3-6 months. Nocturia approximately Q 0.5 hr. Less frequent during the day. * He may be centralizing peripheral edema fluid when he is supine and night * Improved with discontinuation of pilocarpine. Dry mouth. * Continue Biotene. He is found it helpful. Will change dosing to q.2 hours starting 02/05/2018. He will likely only use it during the night. * Discontinue pilocarpine at HS, though may have been beneficial, due to nocturia. Edema. Trial of furosemide 20 mg QAM starting 02/05/2018. Edema improving. Check weight q.day starting 02/06/2018. Low vision. Discussed possible etiologies with neurosurgeon, Dr. Johnson, 2017. He thinks it is likely due to prolonged papilledema related to increased intracranial pressure. He had initial improvement when an intraventricular drain was placed. 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 Anemia, thrombocytopenia. * Hemoglobin and hematocrit 7.9/23.8 on 01/24/2018. Platelets were 130. * Improving on labs, 8.8 and 27.1 on01/31/2018. Not iron deficient. Thrombocytopenia resolved. * Stable on labs 02/04/2018. Hypokalemia noted on labs 01/29/2018 with potassium of 3.1. Minimal improvement to 3.2 on BMP 01/30/2018. Normal magnesium on labs 01/30/2018. Initiate potassium replacement 20 mEq q.day. * Resolved on labs 01/31/2018. Will recheck Q and Sunday with monitoring regarding antibiotics. * Resume KCL with initiation of furosemide on 02/05/2018. Insomnia. Improved with change of mattress. Duodenal ulcer. Continue proton pump inhibitor likely for 6 weeks, which would be into mid February. Wound care. He should wash his hair daily with regular shampoo, but not scrub harshly over incisions. He can pat dry with a towel. He is not to put anything on his incisions. Per Dr. Johnson, there is fluid under the wound behind his left ear. There is also a fat graft in his mastoid. He expects this fluid collection to either resolve or declare itself as a CSF leak. It will be monitored carefully. * Discontinued sutures and julien, 02/04/2018. Prophylaxis. Has left lower extremity DVT. Rivaroxaban as above. On pantoprazole for GI prophylaxis. DISPOSITION: Plans to return home, where he is main caregiver for his mother as well as his brother was on disability. 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 Tentative discharge date set for 02/08/2018. FOLLOW-UP. He will see Dr. Johnson of [facility] after his discharge, and Dr. Johnson or his physician ssn/ssbn assistant navigator, Soraida, will try to schedule a visit while he is on inpatient rehabilitation. He will follow up with infectious disease physician, Dr. Crispin Rosenberg, after his discharge. He will benefit from a Neuro-Ophthalmology evaluation. JUSTIFICATION FOR WALKER: This patient has a mobility limitation that significantly impairs 1 or more mobility related ADLs in the home, he is able to use the walker safely, and his functional mobility deficit cannot be resolved with a cane. 02/05/18 16:27 Subjective: Has dry mouth at night. He is not using Biotene during the day and wonders if he can use it at night. He thinks his swelling is down. His nocturia is at baseline, approximately every 2 hr. Objective: Vital Signs Temp Pulse Resp BP Pulse Ox 36.8 C 89 17 140/90 H 92 02/05/18 06:13 02/05/18 06:13 02/05/18 06:13 02/05/18 08:21 02/05/18 06:13 Laboratory Results 02/04/18 06:00 02/04/18 06:00 02/04/18 02/05/18 02/06/18 05:59 05:59 05:59 Intake Total 3234 2440 100 Output Total 1600 925 Balance 1634 1515 100 Physical Exam - Physical Exam General Appearance: WD/WN, alert, no apparent distress, obese Respiratory: No respiratory distress, No accessory muscle use Skin: normal color, warm/dry Extremities: swelling (Swelling improved, trace to 1+ bilateral upper extremities, 1 to 2+ bilateral lower extremities) Neuro/Psych: alert, normal mood/affect, oriented x 3, facial droop (Left), other (Incomplete closure of left eye) ICD10 Worksheet Patient Problems: Problems Problem Status Onset History of benign schwannoma Acute Meningitis after procedure Acute S/P craniotomy Acute
[2018-02-05] MEDS: PETROLAT,WHT/MIN OIL/SOD CHL 3.5 GM OPHT.OINT LEFTEYE SCH (20:08)
[2018-02-06] MEDS: BIOTENE DRY MOUTH ORAL RINSE 237 ML BTL MM PRN ×3 (00:31→22:16)
[2018-02-06] MEDS: VANCOMYCIN 1.5 GM in NS 250 ML IV SCH ×3 (02:37→21:03)
[2018-02-06] MEDS: CEFEPIME HCL 2 GM in NS 100 ML IV SCH ×3 (05:47→23:04)
[2018-02-06] MEDS: RIVAROXABAN 15 MG TAB PO SCH ×2 (08:39→18:06)
[2018-02-06] MEDS: metroNIDAZOLE 500 MG TAB PO SCH ×3 (08:39→23:05)
[2018-02-06] MEDS: POTASSIUM CL 20 MEQ PKT PO SCH (08:40)
[2018-02-06] MEDS: PANTOPRAZOLE SODIUM 40 MG TAB PO SCH ×2 (08:41→21:03)
[2018-02-06] MEDS: LISINOPRIL 20 MG TAB PO SCH (08:41)
[2018-02-06] MEDS: FUROSEMIDE 20 MG TAB PO SCH (08:41)
[2018-02-06] MEDS: CARBOXYMETHYLCELLULOSE 1% 0.4 ML DROPERETTE EACHEYE SCH ×3 (08:42→22:13)
[2018-02-06] MEDS: SENNOSIDES/DOCUSATE SODIUM TAB PO SCH ×2 (08:42→21:02)
--- NOTE | 2018-02-06 12:25 | SOAPPROG ---
SOAP Progress Note Assessment/Plan: Assessment: Debility status post craniotomy and excision of left vestibular schwannoma. * Initial functional independence measure 83 on 02/01/2018, improved to 98 as of 02/06/2018. Supervision level for mobility with front wheeled walker. Ambulating 150 ft. Climbed and descended 6 steps standby assist with 2 rails. [place] for mobility is limited by low vision. ADLs are at standby assist level except for bathing which requires moderate assistance.. Needs guidance for low vision when he is walking. Vision in the right eye is improving; vision in the left eye shows severe impairment. * Continue PT and OT to optimize mobility and ADLs toward the independent or modified independent level. Dysphagia and left facial weakness. * Unlikely to respond to e-stim if facial nerve is not functioning. On regular texture diet with thin liquids. Has some pocketing and left labial seal leak. * Continue LINING SCRUBBER. Inability to close left eye. Eye will be taped shut at night. Continue ophthalmic ointment at night and Celluvisc ophthalmic drops during the day. Hypertension, which required IV blood pressure medications initially. * Changed from amlodipine 10 mg q.day to lisinopril 20 mg q.day starting 2017 to reduce edema. * Has cough, possibly due to Domingo inhibitor; has orthostatic hypotension; may be over diuresing with furosemide; may be spending too much time Heart is on-call and subsequently having decline of orthostatic reflexes. * Change from lisinopril to candesartan starting 02/07/2018 for relatively short duration of action, cautiously at 4 mg twice daily. Hold morning dose for seated blood pressure less than 120/80. Give evening dose to have some control over supine hypertension overnight. Edema. Trial of furosemide 20 mg QAM starting 02/05/2018. Edema improving. Check weight q.day starting 02/06/2018. * DC furosemide due to orthostasis starting 02/07/2018. Meningitis. Continue cefepime 2 g q.8 hours IV, vancomycin 2 g q.12 hours IV, and metronidazole 500 mg p.o. q.8 hours for 14 days, through 02/07/2018. * CBC, CMP, ESR, and CRP, and vancomycin trough every Sunday * BMP and vancomycin trough every . * Labs are to be faxed to Dr. Crispin Rosenberg [facility] at [phone]. * [facility] pharmacy adjusting vancomycin. * Discussed with Dr. Rosenberg of Infectious Disease on 02/05/2018. Proceed with plan to discontinue antibiotics on 02/07/2018. DVT, left lower extremity. Diagnosed 02/03/2018 and enoxaparin begun. * Discussed with patient's pharmacy. New oral anticoagulants are covered. Changed to rivaroxaban 15 mg twice daily for 21 days through February 24, then 20 mg p.o. Q.day for 3-6 months. Nocturia approximately Q 0.5 hr. Less frequent during the day. * He may be centralizing peripheral edema fluid when he is supine and night * Improved with discontinuation of pilocarpine. Dry mouth. * Continue Biotene. He is found it helpful. Will change dosing to q.2 hours starting 02/05/2018. He will likely only use it during the night. Much improved as of 02/06/2018. * Discontinued pilocarpine at HS, though may have been beneficial, due to nocturia. Low vision. Discussed possible etiologies with neurosurgeon, Dr. Johnson, 2017. He thinks it is likely due to prolonged papilledema related to increased intracranial pressure. He had initial improvement when an intraventricular drain was placed. 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 Anemia, thrombocytopenia. * Hemoglobin and hematocrit 7.9/23.8 on 01/24/2018. Platelets were 130. * Improving on labs, 8.8 and 27.1 on01/31/2018. Not iron deficient. Thrombocytopenia resolved. * Stable on labs 02/04/2018. Hypokalemia noted on labs 01/29/2018 with potassium of 3.1. Minimal improvement to 3.2 on BMP 01/30/2018. Normal magnesium on labs 01/30/2018. Initiate potassium replacement 20 mEq q.day. * Resolved on labs 01/31/2018. Will recheck Q and Sunday with monitoring regarding antibiotics. * Resume KCL with initiation of furosemide on 02/05/2018. Insomnia. Improved with change of mattress. Duodenal ulcer. Continue proton pump inhibitor likely for 6 weeks, which would be into mid February. Wound care. He should wash his hair daily with regular shampoo, but not scrub harshly over incisions. He can pat dry with a towel. He is not to put anything on his incisions. Per Dr. Johnson, there is fluid under the wound behind his left ear. There is also a fat graft in his mastoid. He expects this fluid collection to either resolve or declare itself as a CSF leak. It will be monitored carefully. * Discontinued sutures and julien, 02/04/2018. Prophylaxis. Has left lower extremity DVT. Rivaroxaban as above. On pantoprazole for GI prophylaxis. DISPOSITION: Attended staffing, 15 min. Discussed with case management, nursing, dietitian, PT, OT, LINING SCRUBBER Plans to return home, where he is main caregiver for his mother as well as his brother was on disability; brother is available to provide some assistance. 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 Tentative discharge date set for . FOLLOW-UP. He will see Dr. Johnson of [facility] after his discharge, and Dr. Johnson or his physician hotel assistant manager, Soraida, will try to schedule a visit while he is on inpatient rehabilitation. He will follow up with infectious disease physician, Dr. Crispin Rosenberg, after his discharge. He will benefit from a Neuro-Ophthalmology evaluation. JUSTIFICATION FOR WALKER: This patient has a mobility limitation that significantly impairs 1 or more mobility related ADLs in the home, he is able to use the walker safely, and his functional mobility deficit cannot be resolved with a cane. 02/06/18 17:17 Subjective: Has a cough, nonproductive. No dyspnea, no fevers or chills. Was lightheaded with standing during his late morning PT session. Noted to be orthostatic with systolic blood pressure dropped from 122-101. Objective: Vital Signs Temp Pulse Resp BP Pulse Ox 36.4 C 94 17 147/100 H 93 02/06/18 06:14 02/06/18 06:14 02/06/18 06:14 02/06/18 08:41 02/06/18 06:14 Laboratory Results 02/04/18 06:00 02/04/18 06:00 02/05/18 02/06/18 02/07/18 05:59 05:59 05:59 Intake Total 2440 2950 790 Output Total 925 350 Balance 1515 2950 440 Physical Exam - Physical Exam General Appearance: WD/WN, alert, no apparent distress, obese Respiratory: normal breath sounds, No crackles, No rhonchi, No wheezing Cardiac/Chest: regular rate, rhythm, edema (1+ bilateral upper extremities, 2+ bilateral lower extremities.), No diastolic murmur, No systolic murmur Skin: normal color, warm/dry Neuro/Psych: alert, normal mood/affect, oriented x 3, facial droop (Left), other (Unable to fully close left eye) ICD10 Worksheet Patient Problems: Problems Problem Status Onset History of benign schwannoma Acute Meningitis after procedure Acute S/P craniotomy Acute
[2018-02-06] MEDS ORDERED: ALTEPLASE 2 MG VIAL IVP PRN (13:29)
[2018-02-06] MEDS: CANDESARTAN CILEXETIL 8 MG TAB PO SCH (17:26)
[2018-02-06] MEDS ORDERED: CANDESARTAN CILEXETIL 8 MG TAB PO SCH (21:00)
[2018-02-06] MEDS: PETROLAT,WHT/MIN OIL/SOD CHL 3.5 GM OPHT.OINT LEFTEYE SCH (21:03)
[2018-02-07] MEDS: VANCOMYCIN 1.5 GM in NS 250 ML IV SCH (05:30)
[2018-02-07] MEDS: CEFEPIME HCL 2 GM in NS 100 ML IV SCH (08:19)
[2018-02-07] MEDS: CANDESARTAN CILEXETIL 8 MG TAB PO SCH ×2 (08:21→20:02)
[2018-02-07] MEDS: PANTOPRAZOLE SODIUM 40 MG TAB PO SCH ×2 (08:24→20:03)
[2018-02-07] MEDS: POTASSIUM CL 20 MEQ PKT PO SCH (08:24)
[2018-02-07] MEDS: metroNIDAZOLE 500 MG TAB PO SCH ×3 (08:25→23:24)
[2018-02-07] MEDS: CARBOXYMETHYLCELLULOSE 1% 0.4 ML DROPERETTE EACHEYE SCH ×3 (08:25→22:07)
[2018-02-07] MEDS: SENNOSIDES/DOCUSATE SODIUM TAB PO SCH ×2 (08:25→20:02)
[2018-02-07] MEDS: RIVAROXABAN 15 MG TAB PO SCH ×2 (08:25→18:12)
--- NOTE | 2018-02-07 15:26 | SOAPPROG ---
SOAP Progress Note Assessment/Plan: Assessment: Debility status post craniotomy and excision of left vestibular schwannoma. * Initial functional independence measure 83 on 02/01/2018, improved to 98 as of 02/06/2018. Supervision level for mobility with front wheeled walker. Ambulating 150 ft. Climbed and descended 6 steps standby assist with 2 rails. [place] for mobility is limited by low vision. ADLs are at standby assist level except for bathing which requires moderate assistance.. Needs guidance for low vision when he is walking. Vision in the right eye is improving; vision in the left eye shows severe impairment. * Continue PT and OT to optimize mobility and ADLs toward the independent or modified independent level. Dysphagia and left facial weakness. * Unlikely to respond to e-stim if facial nerve is not functioning. On regular texture diet with thin liquids. Has some pocketing and left labial seal leak. * Continue PIPE CONNECTOR. Inability to close left eye. Eye will be taped shut at night. Continue ophthalmic ointment at night and Celluvisc ophthalmic drops during the day. Hypertension, which required IV blood pressure medications initially. * Changed from amlodipine 10 mg q.day to lisinopril 20 mg q.day starting 2017 to reduce edema. * Has cough, possibly due to Domingo inhibitor; has orthostatic hypotension; may be over diuresing with furosemide; may be spending too much time supine and subsequently having decline of orthostatic reflexes. * Change from lisinopril to candesartan starting 02/07/2018 for relatively short duration of action, cautiously at 4 mg twice daily. Hold morning dose for seated blood pressure less than 120/80. Give evening dose to have some control over supine hypertension overnight. * As of 02/07/2018 blood pressure ranges 134/84 to 181/109. Not orthostatic. Continue candesartan and will likely need titration after discharge. Edema. Trial of furosemide 20 mg QAM starting 02/05/2018. Edema improving. Check weight q.day starting 02/06/2018. * DC furosemide due to orthostasis starting 02/07/2018. Meningitis. Completed cefepime 2 g q.8 hours IV, vancomycin 2 g q.12 hours IV, and metronidazole 500 mg p.o. q.8 hours for 14 days, through 02/07/2018. * CBC, CMP, ESR, and CRP, and vancomycin trough every Sunday * BMP and vancomycin trough every . * Labs are to be faxed to Dr. Crispin Rosenberg of [facility] at [phone]. * [facility] adjusting vancomycin. * Discussed with Dr. Rosenberg of Infectious Disease on 02/05/2018. Proceed with plan to discontinue antibiotics on 02/07/2018. DVT, left lower extremity. Diagnosed 02/03/2018 and enoxaparin begun. * Discussed with patient's pharmacy. New oral anticoagulants are covered. Changed to rivaroxaban 15 mg twice daily for 21 days through February 24, then 20 mg p.o. Q.day for 3-6 months. Nocturnal hypoxia, likely due to obesity hypoventilation. Continue oxygen at night. Nocturia approximately Q 0.5 hr. Less frequent during the day. * He may be centralizing peripheral edema fluid when he is supine and night * Improved with discontinuation of pilocarpine. Dry mouth. * Continue Biotene. He is found it helpful. Will change dosing to q.2 hours starting 02/05/2018. He will likely only use it during the night. Much improved as of 02/06/2018. * Discontinued pilocarpine at HS, though may have been beneficial, due to nocturia. Low vision. Discussed possible etiologies with neurosurgeon, Dr. Johnson, 2017. He thinks it is likely due to prolonged papilledema related to increased intracranial pressure. He had initial improvement when an intraventricular drain was placed. 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 Anemia, thrombocytopenia. * Hemoglobin and hematocrit 7.9/23.8 on 01/24/2018. Platelets were 130. * Improving on labs, 8.8 and 27.1 on01/31/2018. Not iron deficient. Thrombocytopenia resolved. * Stable on labs 02/04/2018. Hypokalemia noted on labs 01/29/2018 with potassium of 3.1. Minimal improvement to 3.2 on BMP 01/30/2018. Normal magnesium on labs 01/30/2018. Initiate potassium replacement 20 mEq q.day. * Resolved on labs 01/31/2018. Will recheck Q and Sunday with monitoring regarding antibiotics. * Resume KCL with initiation of furosemide on 02/05/2018. Insomnia. Improved with change of mattress. Duodenal ulcer. Continue proton pump inhibitor likely for 6 weeks, which would be into mid February. Wound care. He should wash his hair daily with regular shampoo, but not scrub harshly over incisions. He can pat dry with a towel. He is not to put anything on his incisions. Per Dr. Johnson, there is fluid under the wound behind his left ear. There is also a fat graft in his mastoid. He expects this fluid collection to either resolve or declare itself as a CSF leak. It will be monitored carefully. * Discontinued sutures and julien, 02/04/2018. Prophylaxis. Has left lower extremity DVT. Rivaroxaban as above. On pantoprazole for GI prophylaxis. DISPOSITION: Plans to return home, where he is main caregiver for his mother; brother is on disability; brother is available to provide some assistance. 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 Discharge 02/08/2018. He has declined the offer of home therapies. FOLLOW-UP. He will see Dr. Johnson of [facility] after his discharge, and Dr. Johnson or his physician assistant kitchen manager, Soraida, will try to schedule a visit while he is on inpatient rehabilitation. He will follow up with infectious disease physician, Dr. Crispin Rosenberg, after his discharge. He will benefit from a Neuro-Ophthalmology evaluation. JUSTIFICATION FOR WALKER: This patient has a mobility limitation that significantly impairs 1 or more mobility related ADLs in the home, he is able to use the walker safely, and his functional mobility deficit cannot be resolved with a cane. 02/07/18 15:21 Subjective: Cough is resolving. No longer feeling dizzy when he stands up. Otherwise without complaint. Objective: Vital Signs Temp Pulse Resp BP Pulse Ox 36.4 C 94 16 157/98 H 94 02/07/18 07:05 02/07/18 15:16 02/07/18 07:05 02/07/18 15:16 02/07/18 07:05 Laboratory Results 02/04/18 06:00 02/04/18 06:00 02/06/18 02/07/18 02/08/18 05:59 05:59 05:59 Intake Total 2950 3748 930 Output Total 2125 1450 Balance 2950 1623 -520 Physical Exam - Physical Exam General Appearance: WD/WN, alert, no apparent distress, obese Respiratory: normal breath sounds, No crackles, No rhonchi, No wheezing Cardiac/Chest: regular rate, rhythm, edema (1+ bilateral upper extremities, 2 to 3+ bilateral pretibial), No diastolic murmur, No systolic murmur Skin: normal color, warm/dry Neuro/Psych: alert, normal mood/affect, oriented x 3, facial droop (Unable to close left eye) ICD10 Worksheet Patient Problems: Problems Problem Status Onset History of benign schwannoma Acute Meningitis after procedure Acute S/P craniotomy Acute
--- NOTE | 2018-02-07 15:27 | PDOREHIP ---
Admission [facility] - Admission - 3 Day Assessment Period Admission Date/Day 1: 01/29/18 Day 2: 01/30/18 Day 3: 01/31/18 Discharge [facility] - Discharge - 3 Day Assessment Period 2 Days Prior to Anticipated Discharge Date: 02/06/18 1 Day Prior to Anticipated Discharge Date: 02/07/18 Anticipated Discharge Date: 02/08/18 - Discharge Skin Conditions Unhealed Pressure Ulcer (1 or more/Stage 1 or >)-Discharge: 0. No
[2018-02-07 16:17] LABS: PLATELET COUNT 292 10^3/uL (150-400)
[2018-02-07] MEDS: PETROLAT,WHT/MIN OIL/SOD CHL 3.5 GM OPHT.OINT LEFTEYE SCH (20:03)
[2018-02-08] MEDS: RIVAROXABAN 15 MG TAB PO SCH (09:15)
[2018-02-08] MEDS: PANTOPRAZOLE SODIUM 40 MG TAB PO SCH (09:54)
[2018-02-08] MEDS: POTASSIUM CL 20 MEQ PKT PO SCH (09:55)
[2018-02-08] MEDS: CARBOXYMETHYLCELLULOSE 1% 0.4 ML DROPERETTE EACHEYE SCH (09:55)
[2018-02-08] MEDS: CANDESARTAN CILEXETIL 8 MG TAB PO ONE ×2 (09:55→11:20)
[2018-02-08] MEDS: CANDESARTAN CILEXETIL 8 MG TAB PO SCH (09:59)
[2018-02-08] MEDS: SENNOSIDES/DOCUSATE SODIUM TAB PO SCH (09:59)
[2018-02-08 10:58] VITALS: BP 142/85
--- NOTE | 2018-02-08 15:28 | GDS ---
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 OTHER DISCHARGE DIAGNOSES: 1. Dysphagia and left facial weakness. 2. Hypertension. 3. Edema. 4. Meningitis. 5. Left lower extremity deep vein thrombosis. 6. Obesity hypoventilation. COMPLICATIONS: There were none. PROCEDURES: There were none. CONSULTATIONS: There were none. HISTORY AND HOSPITAL COURSE: This patient was admitted from [facility]. He had a craniotomy there for a left vestibular schwannoma. It was a two-stage surgery. Between the two stages, he had respiratory failure with pneumonia. Subsequently, he had a fall and suffered a nasal fracture, and was then diagnosed with purulent meningitis which required a repeat craniotomy. The symptoms of the schwannoma had been developing gradually over several months, including reduced visual acuity. This was considered to be due to increased intracranial pressure affecting the optic nerve. He was medically stable and discharged to inpatient rehabilitation. He did well in rehabilitation. His initial functional independence measure was 83 on 02/01/2018, which is consistent with long term level of care. Functional independence measure improved to 98 as of 02/06/2018, which is borderline between assisted living and independent living level of function. He required only supervision for mobility using a front-wheeled walker. He was ambulating 150 feet. He climbed and descended 6 steps with standby assist using 2 rails. [place] for mobility was limited by low vision. Activities of daily living were at standby assist level, except for bathing which required moderate assistance. Vision was improving in the right eye, but he continued to have severe impairment to vision in the left eye. The schwannoma and surgery left him with dysphagia and left facial weakness. He was able to be advanced to a regular diet with thin liquids, but he continued to have some pocketing and a left labial seal leak. He was unable to close his left eye. It was taped shut at night. He used frequent artificial tears. He had ophthalmic ointment to the left eye at bedtime. Blood pressure management was complicated. He was on amlodipine. He had IV blood pressure medications during his hospitalization. He was discharged on amlodipine 10 mg daily. He was noted to have considerable edema in the upper and lower extremities. It was thought the amlodipine might contribute, so it was discontinued, and he was begun on lisinopril at 20 mg p.o. daily. He developed a cough on lisinopril. He was also treated with furosemide for the edema. After several days he developed orthostatic hypotension. He was changed from lisinopril to candesartan on 02/07/2018, and the furosemide was discontinued. Candesartan was chosen for its relatively short duration of action, so if he continued to have orthostasis, a dose could be missed, and he would recover fairly quickly. Orthostatic symptoms and orthostasis by blood pressure measurement both resolved. Blood pressure was then elevated, so candesartan was increased to 8 mg b.i.d. Regarding edema, he had diuresis of 2.3 kg, from 152.8 kg to 150.5 kg during his stay. His edema improved, but was still present. For the meningitis, he came to inpatient rehabilitation with vancomycin and cefepime IV, and metronidazole p.o. These were continued as per hospital discharge instructions through 02/07/2018. Pharmacy assisted in adjusting vancomycin to maintain a trough between 15 and 20. Antibiotics were discontinued on 02/07/2018. He showed no signs or symptoms of continued meningitis. He developed left calf pain and had an ultrasound study which revealed a DVT on 02/03/2018. He was initially treated with enoxaparin. After discussion with the patient's pharmacy, it was found that new oral anticoagulants were covered. He was changed to rivaroxaban 15 mg twice a day to continue for 21 days through February 24, and then he is to change to rivaroxaban 20 mg daily for 3-6 months. He had nocturnal hypoxia. This was considered likely due to obesity hypoventilation and possibly due to a component of obstructive sleep apnea. He was treated with oxygen overnight. He had anemia with initially hemoglobin of 7.9, and hematocrit of 23.8. There was also thrombocytopenia. His anemia was stable through his stay, and on the day before discharge hemoglobin was 8.8, and hematocrit was 28.7. Thrombocytopenia resolved. An iron panel was drawn, and he was not iron deficient. TIBC was low, so he likely had a component of anemia of chronic disease. Renal function and electrolytes remained stable and within normal limits during his stay, and liver functions were normal. Albumin was improving. On the day before discharge, albumin was 2.4. A duodenal ulcer had been diagnosed during his hospital stay, and he remained stable on proton pump inhibitor pantoprazole 40 mg b.i.d., and this should continue into mid February. DISCHARGE PLAN: 1. Condition upon discharge is good. 2. Activity is ad tj, but he should use a front-wheeled walker, and will need supervision for mobility due to low vision. He is not to be driving. 3. Diet is regular. 4. Disposition. He is returning home with his brother and mother. He has been the main caregiver for his mother, but his brother is able to help. MEDICATIONS UPON DISCHARGE: 1. Acetaminophen 650 mg p.o. q.6 hours p.r.n. 2. Candesartan 8 mg p.o. b.i.d. 3. Artificial tears p.r.n. and t.i.d. in each eye. 4. Pantoprazole 40 mg p.o. b.i.d. Continue through mid February. 5. Ophthalmic ointment left eye at h.s. 6. Rivaroxaban 15 mg p.o. b.i.d. for 17 more days, and then initiate rivaroxaban at 20 mg daily for a total of 3-6 months of anticoagulation. 7. Biotene saliva substitute p.r.n. 8. Senna/docusate 1 p.o. b.i.d. ISSUES TO BE ADDRESSED AT FOLLOWUP: 1. Mobility and functional status regarding activities of daily living. He declines the offer of continued occupational and physical therapy at home. He can follow up with his primary care provider. 2. Low vision. He has followup scheduled with neuro-paintless dent repair technician, Dr. Andrew Taveras. 3. Dysphagia and left facial weakness. He did not receive electronic stimulation therapy to his left cheek during his stay as this is unlikely to be useful until he begins to have facial nerve function returning. He can follow up with his neurosurgeon or primary care, and might benefit from a referral to Speech And Language Pathology once he begins to have return of facial nerve function. 4. Hypertension. Continue candesartan 8 mg p.o. b.i.d. Watch for symptoms of orthostasis. Follow up with primary care provider. 5. Edema is finally improving, and it is hoped it will continue to resolve. He can follow up again with his primary care provider. 6. Meningitis. Appears to be completely resolved. He finished his full course of antibiotics. He will have follow up with infectious disease physician , Dr. Crispin Rosenberg. 7. DVT of the left lower extremity. Continue rivaroxaban as ordered for 3-6 months. Follow up with primary care. 8. Nocturnal hypoxia. Continue oxygen at night. Consider sleep study to rule out sleep apnea. 9. Anemia, likely due to chronic disease, and now that antibiotics are completed and meningitis has resolved, he can have monitoring to ensure that his blood counts are recovering. He was not iron deficient. 10. Duodenal ulcer. Continue pantoprazole into mid February. FOLLOWUP APPOINTMENTS: He is to see his primary care provider, Dr. Eleno Rdz, in 3-5 days. He is to see neurosurgeon, Dr. Bill Johnson, in approximately 1 week. He is to see neuro-paintless dent repair technician, Dr. Andrew Taveras, in 3 -5 days. He will see infectious disease physician, Dr. Crispin Rosenberg, as scheduled by [facility]. Copy requested to: Dr. Eleno Rosenberg [facility] /[id number]
[2018-02-08] MEDS ORDERED: CANDESARTAN CILEXETIL 8 MG TAB PO SCH (21:00)
== END 2018-02-08 12:47 | disposition home health service (06) | DRG 949 ==
LOC: BREH 14:01
PROVIDERS: ADMIT Internal Medicine; ATTEND Internal Medicine
PROC: F0636ZZ Communicative/Cognitive Integration Skills Treatment of Neurological System - Whole Body (ICD-10-PCS; principal; 2018-01-29)
PROC: F07M3ZZ Motor Function Treatment of Musculoskeletal System - Whole Body (ICD-10-PCS; principal; 2018-01-29)
PROC: F08Z7ZZ Vocational Activities and Functional Community or Work Reintegration Skills Treatment (ICD-10-PCS; principal; 2018-01-29)
DX: Z48.811 Encounter for surgical aftercare following surgery on the nervous system (principal); R53.81 Other malaise; H53.9 Unspecified visual disturbance; R13.10 Dysphagia, unspecified; Z86.011 Personal history of benign neoplasm of the brain; K26.9 Duodenal ulcer, unspecified as acute or chronic, without hemorrhage or perforation; I82.4Z9 Acute embolism and thrombosis of unspecified deep veins of unspecified distal lower extremity; D63.8 Anemia in other chronic diseases classified elsewhere; E87.6 Hypokalemia; S02.2XXD Fracture of nasal bones, subsequent encounter for fracture with routine healing; W19.XXXD Unspecified fall, subsequent encounter; I10 Essential (primary) hypertension; E66.2 Morbid (severe) obesity with alveolar hypoventilation; Z68.41 Body mass index [BMI] 40.0-44.9, adult
CPT/HCPCS: 92507-GN; 92508-GN; 92526-GN; 92610-GN; 97110-GO; 97110-GP; 97112-GP; 97116-GP; 97140-GO; 97162-GP; 97166-GO; 97530-GO; 97530-GP; 97535-GO; 99368-GP; G0515-GO; J0692; J1650; J2997; J3370